=== PATIENT | female | born 1955 | race Caucasian/White ===

== ENCOUNTER 2019-09-23 17:29 | Emergency (ER) | payer MEDICARE ==
[~2019-09-23] VITALS: Ht 162.6 cm; Wt 51.7 kg
--- NOTE | 2019-09-23 17:49 | NUR ---
BIB RA, 64 YEAR OLD FEMALE, C/O BODY ACHES. ALERT AND ORIENTED X3, BREATHING EVEN AND UNLABORED WITH NO DISTRESS NOTED. HOOK ON MONITOR, WILL CONTINUE TO MONITOR. NOTED RIGHT FOOD SORE, PER PT WOUND IS TAKING CARE OF IT. WAITING TO BE SEEN BY MD.
[2019-09-23] MEDS ORDERED: ACETAMINOPHEN ES 500 MG TABLET ONE (18:23)
[2019-09-23] MEDS ORDERED: KETOROLAC TROMETHAMINE 15 MG/ML VIAL ONE (18:23)
[2019-09-23] MEDS ORDERED: KETOROLAC TROMETHAMINE INJ 30 MG/ML VIAL IV ONE (18:30)
[2019-09-23] MEDS ORDERED: IV NS 0.9% 1,000 ML BAG IV ONE ×2 (18:30→20:00)
[2019-09-23] MEDS ORDERED: ACETAMINOPHEN ES 500 MG TABLET PO ONE (18:30)
[2019-09-23 18:44] LABS: BASOPHILS % (AUTO) 0.7 % (0.0-2.0); EOSINOPHILS % (AUTO) 0.6 % (0.0-6.0); HEMATOCRIT 37 % (33-45); HEMOGLOBIN 12.3 g/dL (11.5-14.8); LYMPHOCYTES # (AUTO) 2.1 /CMM (0.8-4.8); LYMPHOCYTES % (AUTO) 32.9 % (20.0-44.0); MEAN CORPUSCULAR HGB CONC 33 g/dl (31.0-36.0); MEAN CORPUSCULAR VOLUME 93 fL (82-100); MONOCYTES # (AUTO) 0.3 /CMM (0.1-1.30); MONOCYTES % (AUTO) 4.1 % (2.0-12.0); NEUTROPHILS # (AUTO) 3.9 /CMM (1.8-8.9); NEUTROPHILS % (AUTO) 61.7 % (43.0-81.0); PLATELET COUNT (AUTO) 658 /CMM (150-450); RED BLOOD CELL COUNT(AUTO) 3.98 MIL/uL (4.0-5.2); WHITE BLOOD COUNT (AUTO) 6.4 K/uL (4.3-11.0)
--- NOTE | 2019-09-23 18:55 | NUR ---
pt refuse to give urine. PA made aware
[2019-09-23 18:57] LABS: CALCIUM, SERUM 8.7 mg/dL (8.5-10.1); CREATININE 0.6 mg/dL (0.6-1.3); POTASSIUM 3.3 mmol/L (3.5-5.1)
[2019-09-23 19:01] LABS: ALBUMIN 3.2 g/dL (3.4-5.0); BILIRUBIN,TOTAL 0.1 mg/dL (0.2-1.0); TOTAL PROTEIN, SERUM 6.7 g/dL (6.4-8.2)
[2019-09-23] MEDS ORDERED: POTASSIUM CHLORIDE 20 MEQ TAB.PRT.SR PO ONE ×2 (19:53→20:00)
--- NOTE | 2019-09-23 21:39 | NUR ---
FOOD PROVIDED TO PT AT BEDSIDE
[2019-09-23 21:56] LABS: APPEARANCE,URINE Clear (CLEAR); BILIRUBIN,URINE Negative (NEGATIVE); BLOOD, URINE Negative Ery/uL (NEGATIVE); COLOR,URINE Yellow (YELLOW); KETONES,URINE Negative (NEGATIVE); LEUKOCYTE ESTERASE ,URINE Trace (NEGATIVE); NITRITE, URINE Negative (NEGATIVE); PROTEIN,URINE Negative (NEGATIVE); UGLUCOSE Negative (NEGATIVE); UROBILINOGEN,URINE 0.2 EU/dL (0.2)
--- NOTE | 2019-09-23 21:56 | NUR ---
URINE COLLECTED SENT TO LAB
[2019-09-23 22:12] LABS: BACTERIA,URINE Few /HPF (None Seen); RBC,URINE 0-2 /HPF (0-2); SQUAMOUS EPITHELIAL CELL,UR Few /HPF (None Seen)
--- NOTE | 2019-09-23 22:30 | NUR ---
PT RIGHT FOOT DRESSING CAME OFF, REAPPLIED DRESSINGS PER P.A ORDER
--- NOTE | 2019-09-23 23:28 | NUR ---
PT REMAINS ASLEEP. WILL CONTINUE TO MONITOR
--- NOTE | 2019-09-24 01:00 | NUR ---
PT WAS FOUND SMOKING CIGARETTE AT BEDSIDE. PT WAS WARNED THAT WOULD NOT BE PERMITTED IN ER. PT THEN BEGAN DEMANDING FOR NARCOTIC PAIN MEDICATIONS. PATIENT WAS NOTIFIED THAT SHE WOULD NOT BE RECEIVING ANY NARCOTIC MEDICATIONS. PT THEN STATED THAT SHE WANTED TO LEAVE THE ER AND NO LONGER WANTED TO STAY. DR BROOKE AWARE. PT OK TO BE DISCHARGED PER DR BROOKE.
[2019-09-24 03:20] VITALS: BP 129/71
== END 2019-09-24 03:21 | disposition home or self-care (01) ==
LOC: ER 17:31
DX: L97.829 Non-pressure chronic ulcer of other part of left lower leg with unspecified severity (principal); M25.511 Pain in right shoulder; F10.129 Alcohol abuse with intoxication, unspecified; G89.29 Other chronic pain; M54.9 Dorsalgia, unspecified; D47.3 Essential (hemorrhagic) thrombocythemia; E87.0 Hyperosmolality and hypernatremia; E87.6 Hypokalemia; Y90.6 Blood alcohol level of 120-199 mg/100 ml; Z59.0 Homelessness
CPT/HCPCS: 36415; 73030; 80048; 80076; 80305; 80307; 81001; 83690; 85025; 96374; 99284; J1885; J7030 ×2; 81000-TC; G0480